=== PATIENT | female | born 1965 | race Caucasian/White ===

== ENCOUNTER 2021-07-01 11:55 | Emergency (ER) | payer BC, OTHER ==
[2021-07-01 12:02] VITALS: TEMP 97.3
--- NOTE | 2021-07-01 12:19 | XR ---
Left wrist HISTORY: Trauma and pain 4 views the left wrist There is a comminuted displaced intra-articular distal left radial fracture, some dorsal angulation. Ossific density distal to the ulnar styloid is well-corticated and not felt likely to be acute. IMPRESSION: Distal left radial fracture as described
[2021-07-01] MEDS ORDERED: ONDANSETRON 4 MG/2 ML VIAL IVP STA (12:44)
[2021-07-01] MEDS ORDERED: HYDROmorphone 1 MG/ML 1 ML SYRINGE IVP STA (12:44)
[2021-07-01] MEDS ORDERED: SODIUM CHLORIDE 0.9% 500 ML 500 ML IV STA (12:52)
[2021-07-01] MEDS ORDERED: PROPOFOL 10 MG/ML 20 ML VIAL IV STA (12:52)
--- NOTE | 2021-07-01 13:27 | ED ---
Upper Extremity HPI <Cale Connors - Last Filed: 07/01/21 14:46> - General Source: patient, family, RN notes reviewed Mode of arrival: ambulatory Limitations: no limitations <Sanjay Skinner - Last Filed: 07/01/21 15:07> - General Chief Complaint: Extremity Injury, Upper Stated Complaint: Fall, wrist injury Time Seen by Provider: 07/01/21 12:30 - History of Present Illness Initial Comments: This a 56-year-old female presents emergency Department chief complaint left wrist pain. She states she tripped and fell catching herself. Patient states she has severe pain to the left wrist no head injury no loss conscious. She is [id number]. She is unable to move her left wrist. (Sanjay Skinner) - Related Data Allergies Allergy/AdvReac Type Severity Reaction Status Date / Time No Known Allergies Allergy Verified 07/01/21 12:02 Review of Systems ROS Other: All systems not noted in ROS Statement are negative. <Cale Connors - Last Filed: 07/01/21 14:46> ROS Other: All systems not noted in ROS Statement are negative. <Sanjay Skinner - Last Filed: 07/01/21 15:07> ROS Statement: Those systems with pertinent positive or pertinent negative responses have been documented in the HPI. Past Medical History Past Medical History: No Reported History History of Any Multi-Drug Resistant Organisms: None Reported Past Surgical History: No Surgical Hx Reported Past Psychological History: No Psychological Hx Reported Smoking Status: Never smoker Past Alcohol Use History: None Reported Past Drug Use History: None Reported <Sanjay Skinner - Last Filed: 07/01/21 15:07> General Exam Limitations: no limitations General appearance: alert, in no apparent distress Head exam: Present: atraumatic, normocephalic, normal inspection Eye exam: Present: normal appearance, PERRL, EOMI. Absent: scleral icterus, conjunctival injection, periorbital swelling ENT exam: Present: normal exam, mucous membranes moist Respiratory exam: Present: normal lung sounds bilaterally. Absent: respiratory distress, wheezes, rales, rhonchi, stridor Cardiovascular Exam: Present: regular rate, normal rhythm, normal heart sounds. Absent: systolic murmur, diastolic murmur, rubs, gallop, clicks Extremities exam: Present: other (Left wrist there is obvious deformity, tenderness with palpation radial pulse palpable, cap refill less than 2 seconds all digits. No tenderness of proximal forearm.) <Sanjay Skinner - Last Filed: 07/01/21 15:07> Course Vital Signs 07/01/21 07/01/21 07/01/21 11:58 14:30 14:32 Temperature 97.3 F L Pulse Rate 61 58 L 60 Respiratory 18 18 18 Rate Blood Pressure 158/85 163/80 171/86 O2 Sat by Pulse 97 100 100 Oximetry 07/01/21 07/01/21 07/01/21 14:37 14:42 14:47 Temperature Pulse Rate 60 61 58 L Respiratory 20 20 18 Rate Blood Pressure 174/84 160/85 164/77 O2 Sat by Pulse 100 100 Oximetry 07/01/21 14:51 Temperature Pulse Rate 60 Respiratory 18 Rate Blood Pressure 144/73 O2 Sat by Pulse Oximetry Procedures - Procedural Sedation Procedural Sedation Start Time: 14:30 Procedural Sedation Stop Time: 14:50 Indications: fracture/dislocation reduction ASA Class: I Mallampati Airway Score: 2 Preparation: cardiac monitor technician applied, pulse oximeter, supplemental O2 applied IV Propofol Dose (mgs): 50 Complications: none Patient Tolerated Procedure: well <Cale Connors - Last Filed: 07/01/21 14:46> - Orthopedic Joint Reduction Joint #1 Consent Obtained: written consent Side: left Joint Reduction Location: wrist Analgesia: procedural sedation Technique Used: traction/counter-traction, direct manipulation Post-Reduction Neuro Exam: intact Post-Reduction Vascular Exam: intact Post Reduction X-Ray Obtained: Yes Post Reduction X-Ray Results: reduced Splint Applied: Yes Patient Tolerated Procedure: well - Orthopedic Splinting/Casting Injury #1 Side: left Upper Extremity Injury Location: short arm, wrist Upper Extremity Immobilizer: volar splint, synthetic pre-padded splint <Sanjay Skinner - Last Filed: 07/01/21 15:07> - Orthopedic Splinting/Casting Injury #1 Additional Comments: Neurovascular intact before and after procedure (Sanjay Skinner) Medical Decision Making <Sanjay Skinner - Last Filed: 07/01/21 15:07> - Medical Decision Making Patient presented for fall left wrist injury patient displaced fracture which was reduced with conscious sedation patient tolerated well follow-up with orthopedics outpatient. (Sanjay Skinner) Disposition <ConnorsCale - Last Filed: 07/01/21 14:46> Is patient prescribed a controlled substance at d/c from ED?: No Time of Disposition: 14:41 <Sanjay Skinner - Last Filed: 07/01/21 15:07> Clinical Impression: Distal radius fracture, left Disposition: HOME SELF-CARE Instructions (If sedation given, give patient instructions): Arm Fracture in Adults (ED), Moderate Sedation (ED) Additional Instructions: Please return to the Emergency Department if symptoms worsen or any other concerns. Referrals: Thang Christensen MD [Primary Care Provider] - 1-2 days Nazario Hamilton MD [STAFF PHYSICIAN] - 1-2 days
[2021-07-01] MEDS ORDERED: ACET/COD 300 MG/30 MG STARTER PACK 6 TAB BTL PO STA (14:40)
[2021-07-01] MEDS ORDERED: HYDROmorphone 0.5 MG/0.5 ML SYRINGE IVP STA (14:40)
--- NOTE | 2021-07-01 14:53 | XR ---
EXAMINATION TYPE: XR wrist limited LT DATE OF EXAM: 07/01/2021 CLINICAL HISTORY: Left wrist fracture. TECHNIQUE: Frontal and lateral images of the left wrist are obtained. COMPARISON: Left wrist x-ray earlier today FINDINGS: Interval placement of overlying fiberglass cast or splint material which is noted to lower the radiographic sensitivity. Improved alignment of comminuted intra-articular fractured distal radia l metaphysis after reduction and splinting. Avulsion type fracture from the ulnar styloid is redemons trated. Carpal joint spaces are maintained. IMPRESSION: As above.
[2021-07-01 14:55] VITALS: RESP 18
[2021-07-01 15:34] VITALS: BP 148/78; PULSE 62
== END 2021-07-01 15:34 | disposition home or self-care (01) ==
LOC: EC 11:55
DX: S52.502A Unspecified fracture of the lower end of left radius, initial encounter for closed fracture (principal); W01.0XXA Fall on same level from slipping, tripping and stumbling without subsequent striking against object, initial encounter
CPT/HCPCS: 73100; 73110; 99284; 96374; 96375; 96376; 25605; 99152; J2405; J1170 ×2; J2704